=== PATIENT | female | born 1995 | race Caucasian/White ===

== ENCOUNTER 2017-02-01 09:58 | Emergency (ER) | payer OTHER ==
[2017-02-01 10:16] VITALS: BP 95/46; PULSE 85; RESP 16; TEMP 98.3; O2SAT 100
[2017-02-01] MEDS ORDERED: Lidocaine 2% Inj (20ml) INFIL ONE (10:45)
--- NOTE | 2017-02-01 11:39 | ED PDOC ---
Upper Extremity Pain/Injury Time Seen by Provider: 02/01/17 10:30 Chief Complaint (Nursing): Abnormal Skin Integrity Chief Complaint (Provider): finger laceration History Per: Patient (21 y/o female here for evaluation of left thumb injury that occurred 2:30am. Patient states she was cutting object with knife and cut self. Is right hand dominant. Notes numbess at digit but denies any difficulty with movement of thumb. [place] [facility]. Patient would like wound re-evaluated.) Past Medical History Reviewed: Historical Data, Nursing Documentation, Vital Signs Vital Signs: Last Vital Signs Temp 98.3 F 02/01/17 10:15 Pulse 85 02/01/17 10:15 Resp 16 02/01/17 10:15 BP 95/46 L 02/01/17 10:15 Pulse Ox 100 02/01/17 10:15 - Surgical History Surgical History: Appendectomy - Family History Family History: States: Unknown Family Hx - Immunization History Hx Tetanus Toxoid Vaccination: No Hx Influenza Vaccination: No Hx Pneumococcal Vaccination: No - Home Medications Home Medications: Ambulatory Orders Medication Instructions Recorded Nitrofurantoin Macrocrystals 100 mg PO BID #10 cap 12/13/15 [Macrobid] Phenazopyridine HCl [Pyridium] 200 mg PO BID #6 tablet 12/13/15 - Allergies Allergies/Adverse Reactions: Allergies Allergy/AdvReac Type Severity Reaction Status Date / Time No Known Allergies Allergy Verified 02/01/17 10:11 Review of Systems ROS Statement: Except As Marked, All Systems Reviewed And Found Negative Physical Exam - Reviewed Nursing Documentation Reviewed: Yes Vital Signs Reviewed: Yes - Physical Exam Appears: Positive for: Well, Non-toxic, No Acute Distress Head Exam: Positive for: ATRAUMATIC, NORMAL INSPECTION, NORMOCEPHALIC Skin: Positive for: Normal Color, Warm, DRY Eye Exam: Positive for: EOMI, Normal appearance, PERRL ENT: Positive for: Normal ENT Inspection Neck: Positive for: Normal, Painless ROM Cardiovascular/Chest: Positive for: Regular Rate, Rhythm Respiratory: Positive for: CNT, Normal Breath Sounds Gastrointestinal/Abdominal: Positive for: Normal Exam, Bowel Sounds, Soft Back: Positive for: Normal Inspection Extremity: Positive for: Normal ROM, Other (2 cm laceration volar surface of thumb by DIP. Patient able to flex and extend at PIP/MCP without difficulty. Decreased sensation noted at tip. Gelfoam removed without difficulty.) Neurologic/Psych: Positive for: Alert, Oriented - ECG O2 Sat by Pulse Oximetry: 100 Disposition - Clinical Impression Clinical Impression: Thumb laceration - Patient ED Disposition Is Patient to be Admitted: No - Disposition Referrals: Billie Clayton MD [Staff Provider] - Disposition: Routine/Home Disposition Time: 11:40 Condition: FAIR Additional Instructions: F/U WITH PMD/ED FOR EVALUATION OF WOUND. RETURN TO ED/ F/U WITH PMD IN 7 TO 10 DAYS FOR REMOVAL OF SUTURES. FOLLOW UP WITH HAND SURGEON FOR PERSISTENT NUMBNESS AT THUMB OR ANY WEAKNESS NOTED WITH FUNCTION. Instructions: Laceration (ED) Procedure: Wound Repair - Time Performed Time Performed: 11:39 - Time Out Time Out: Side verified - Consent Obtained Consent obtained: Verbal - Performed by Performed by: Mid-level Provider - Indications Indication(s):: Laceration - Location Location:: Left, Hand Finger:: Thumb Shape:: Linear Dimensions Length cm: 2.0cm Depth:: Epidermis - Anesthetic Technique Anesthetic Technique: Regional block Local/Regional Anesthetic:: Lidocaine 2% (digital block) - Debris Debris:: None - Irrigated Irrigated with ml of normal saline: 200ml - Complexity Complexity:: Simple (one layer) - Wound repair method Sutures:: # (six), Size (5-0), Type (nylon), Technique (interrupted) - Muscle repiar layer closed with Muscle repair layer closed with:: Abx ointment applied, Dressing applied, Tetanus ordered - Patient tolerated procedure Patient Tolerated Procedure:: Well
[2017-02-01] MEDS: TDAP Vaccine 0.5 mL Syr IM ONE ×2 (11:48→11:53)
== END 2017-02-01 12:21 | disposition home or self-care (01) ==
LOC: H.ER 09:58
DX: S61.012D Laceration without foreign body of left thumb without damage to nail, subsequent encounter (principal); W26.0XXD Contact with knife, subsequent encounter

== ENCOUNTER 2017-02-17 18:04 | Emergency (ER) | payer OTHER ==
[2017-02-17 18:39] VITALS: BP 93/51; PULSE 86; RESP 18; TEMP 98.7; O2SAT 100
[2017-02-17] MEDS ORDERED: Lactated Ringer's 1,000 ML IV STA (19:51)
--- NOTE | 2017-02-17 20:19 | ED PDOC ---
HPI: Female Pain Time Seen by Provider: 02/17/17 19:30 Chief Complaint (Nursing): Female Genitourinary Chief Complaint (Provider): Female Genitourinary History Per: Patient History/Exam Limitations: no limitations Onset/Duration Of Symptoms: Days (x2 weeks), Worse Since (x1 week) Current Symptoms Are (Timing): Still Present Associated Symptoms: Urinary Symptoms (dysuria) Additional Complaint(s): Antwon Johnston is a 21 year old female, with no past medical history, who presents to the emergency department complaining of intermittent vaginal discharge associated with dysuria, and foul smell onset for 2 weeks. She reports symptoms worsened 1 week ago with intermittent vaginal spotting. Patient is 11 weeks and during this time she reports nausea, low appetite, and poor weight gain. She follows up her condition at a clinic in [facility]. No further medical complaints. PMD: None provided : 3 Para: 0 Miscarriage: 2 (1 elective , 1 miscarriage) Past Medical History Reviewed: Historical Data, Nursing Documentation, Vital Signs Vital Signs: Last Vital Signs Temp 98.7 F 02/17/17 18:36 Pulse 86 02/17/17 18:36 Resp 18 02/17/17 18:36 BP 93/51 L 02/17/17 18:36 Pulse Ox 100 02/17/17 18:36 - Medical History PMH: No Chronic Diseases - Surgical History Surgical History: Appendectomy - Family History Family History: States: Unknown Family Hx - Social History Current smoker - smoking cessation education provided: No Alcohol: None Drugs: Cannabis (Socially, but stopped after ) - Immunization History Hx Tetanus Toxoid Vaccination: No Hx Influenza Vaccination: No Hx Pneumococcal Vaccination: No - Home Medications Home Medications: Ambulatory Orders Medication Instructions Recorded Nitrofurantoin Macrocrystals 100 mg PO BID #10 cap 12/13/15 [Macrobid] Phenazopyridine HCl [Pyridium] 200 mg PO BID #6 tablet 12/13/15 Ferrous Sulfate [Feosol] 325 mg PO TID #30 tab 02/17/17 Miconazole [Monistat 3] 200 mg VG DAILY #1 packet 02/17/17 Ondansetron ODT [Zofran ODT] 1 odt PO Q6 PRN #10 odt 02/17/17 - Allergies Allergies/Adverse Reactions: Allergies Allergy/AdvReac Type Severity Reaction Status Date / Time No Known Allergies Allergy Verified 02/01/17 10:11 Review of Systems ROS Statement: Except As Marked, All Systems Reviewed And Found Negative (foul smell, intermittent) Genitourinary Female: Positive for: Dysuria, Vaginal Discharge (foul smell, intermittent), Vaginal Bleeding (intermittent minimal spottings) - Laboratory Results Result Diagrams: 02/17/17 20:40 - ECG O2 Sat by Pulse Oximetry: 100 Medical Decision Making Medical Decision Making: Initial Impression: Vaginal discharge and spotting in . Differential include vaginitis, gonorrhea, chlamydia, UTI, threatened . Initial Plan: --Type and Screen --Beta-HCG, quantitative --Urine dipstick --Urine --CBC w/ differential --Chlamydia/GC RNA, TMA --Lactated ringer's 1L --Genital Culture --Urine Culture --Urinalysis --OB , Limited [US] --reevaluation Accession No. : [id number] Patient Name / ID : UMER KAPOOR / [id number] Exam Date : 02/17/2017 20:49:34 ( Approved ) Study Comment : Sex / Age : F / 21Y Creator : Catracho Alberto MD Dictator : Patient Accounting Representative : Tire Mechanic : Catracho Alberto MD Approver2 : Report Date : 02/17/2017 21:53:00 My Comment : [facility] Division of Radiology [address] [place] [address] Tel. no. Patient Name: ANTWON JOHNSTON Pt. Address: [address] [place] [address]. Rec #: [id number] [place] [address]: Juan FREY, Kelsi Villeda Pt CELL Order Location: [facility] : 1995 Female Age: 21 Order #: [id number] Reason for exam: vag dc spotting preg 11 weeks Ultrasound OB , LIMITED Exam Date: 02/17/17 This imaging exam was performed at [facility] EXAM: US First Trimester, Transabdominal CLINICAL HISTORY: 21 years old, female; Signs and symptoms; Lmp or gestational age (in weeks): 12/01/16; Other: Spotting; ; Additional info: Vag dc spotting preg 11 weeks TECHNIQUE: Real-time transabdominal obstetrical ultrasound of the maternal pelvis and a first trimester with image documentation. COMPARISON: No relevant prior studies available. FINDINGS: Gestation: Single live intrauterine gestation. heart rate of 165 beats per minute. [place]-rump length of 4.1 cm, correlating with gestational age of 11 weeks 0 days. Uterus/cervix: No subchorionic hemorrhage. No cervical dilatation or effacement. Ovaries: Normal ovaries. No adnexal masses. Free fluid: No significant free fluid. IMPRESSION: 1. Single live intrauterine gestation. 2. Incidental/non-acute findings are described above. Dictated By: Catracho Alberto MD Dictated Date/Time: 02/17/172152 Signed By: Catracho Alberto MD Date Signed: 2152 Transcribed By: CHANDRA Transcribe Date/Time : 02/17/172152 [id number]/[email or web address] DW pt findings and plan of care. Scribe Attestation: Documented by Facundo Callahan, acting as a scribe for Kelsi Martinez MD. Provider Scribe Attestation: All medical record entries made by the Scribe were at my direction and personally dictated by me. I have reviewed the chart and agree that the record accurately reflects my personal performance of the history, physical exam, medical decision making, and the department course for this patient. I have also personally directed, reviewed, and agree with the discharge instructions and disposition. Disposition - Clinical Impression Clinical Impression: Vaginitis, Vaginal bleeding in , Anemia Counseled Patient/Family Regarding: Studies Performed, Diagnosis, Need For Followup, Rx Given - Disposition Disposition: Routine/Home Disposition Time: 22:00 Condition: GOOD Additional Instructions: FOLLOW UP SCHEDULED WITH YOUR QUARTER SECTION IRONER TAKE YOUR VITAMINS DRINK PLENTY OF HYDRATING FLUIDS AND EAT AT LEAST 3 MEALS A DAY YOU WILL BE CONTACTED IF YOUR CULTURES ARE ABNORMAL Prescriptions: Ferrous Sulfate [Feosol] 325 mg PO TID #30 tab Miconazole [Monistat 3] 200 mg VG DAILY #1 packet Ondansetron ODT [Zofran ODT] 1 odt PO Q6 PRN #10 odt PRN Reason: Nausea/Vomiting Instructions: Vaginitis (ED), First Trimester Vaginal Bleed (ED), Anemia (ED)
[2017-02-17 20:30] LABS: RBC URINE 9 /hpf (0-3); URINE BILIRUBIN NEGATIVE (NEGATIVE); URINE BLOOD SMALL (NEGATIVE); URINE COLOR YELLOW (YELLOW); URINE GLUCOSE (UA) NEG (Normal); URINE KETONE NEGATIVE (NEGATIVE); URINE LEUKOCYTE ESTERASE MOD Leu/uL (Negative); URINE PROTEIN NEGATIVE (NEGATIVE); URINE UROBILINOGEN 0.2-1.0 mg/dL (0.2-1.0); WBC URINE 19 /hpf (0-5)
[2017-02-17 21:00] LABS: BASO % 0.4 % (0.0-2.0); EOS # 0.1 K/uL (0.0-0.7); EOS % 1.1 % (0.0-4.0); HEMATOCRIT 32.4 % (34.0-47.0); LYMPH # 2.1 K/uL (1.0-4.3); MEAN CELL VOLUME 89.9 fl (81.0-99.0); MEAN CORPUSCULAR HEMOGLOBIN 30.3 pg (27.0-31.0); MEAN CORPUSCULAR HGB CONC 33.6 g/dL (33.0-37.0); MEAN PLATELET VOLUME 8.9 fl (7.2-11.7); MONO # 0.6 K/uL (0.0-0.8); MONO % 5.9 % (0.0-10.0); NEUT # 7.2 K/uL (1.8-7.0); NEUT % 71.6 % (50.0-75.0); NRBC % 0.1 % (0.0-0.0); RED CELL DISTRIBUTION WIDTH 13.1 % (11.5-14.5); WHITE BLOOD COUNT 10.1 K/uL (4.8-10.8)
--- NOTE | 2017-02-17 21:53 | US ---
EXAM: US First Trimester, Transabdominal CLINICAL HISTORY: 21 years old, female; Signs and symptoms; Lmp or gestational age (in weeks): 12/01/16; Other: Spotting; ; Additional info: Vag dc spotting preg 11 weeks TECHNIQUE: Real-time transabdominal obstetrical ultrasound of the maternal pelvis and a first trimester with image documentation. COMPARISON: No relevant prior studies available. FINDINGS: Gestation: Single live intrauterine gestation. heart rate of 165 beats per minute. [place]-rump length of 4.1 cm, correlating with gestational age of 11 weeks 0 days. Uterus/cervix: No subchorionic hemorrhage. No cervical dilatation or effacement. Ovaries: Normal ovaries. No adnexal masses. Free fluid: No significant free fluid. IMPRESSION: 1. Single live intrauterine gestation. 2. Incidental/non-acute findings are described above.
== END 2017-02-17 22:45 | disposition home or self-care (01) ==
LOC: H.ER 18:04
DX: O23.591 Infection of other part of genital tract in pregnancy, first trimester (principal); O99.011 Anemia complicating pregnancy, first trimester; Z3A.11 11 weeks gestation of pregnancy; O20.9 Hemorrhage in early pregnancy, unspecified